=== PATIENT | male | born 1955 | race Caucasian/White ===

== ENCOUNTER 2018-01-11 17:25 | Emergency (ER) | payer OTHER ==
[~2018-01-11] VITALS: Ht 177.8 cm; Wt 101.0 kg
[~2018-01-11 17:25] MED LIST: Z.0.NO CURRENT MEDS
[2018-01-11 17:33] VITALS: BP 152/89; PULSE 86; RESP 16; TEMP 99.2; O2SAT 97
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
[2018-01-11] MEDS ORDERED: IBUPROFEN 800 MG TAB PO ONE (18:30)
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
[2018-01-11] MEDS ORDERED: IBUP1TAB7 PO (19:39)
[2018-01-11] MEDS ORDERED: TETANUS/DIPHTHERIA TOXOID ADULT 0.5 ML VIAL IM ONE (20:15)
== END 2018-01-11 20:13 | disposition home or self-care (01) ==
LOC: PHEFT 17:25
DX: S62.512A Displaced fracture of proximal phalanx of left thumb, initial encounter for closed fracture (principal); V22.4XXA Motorcycle driver injured in collision with two- or three-wheeled motor vehicle in traffic accident, initial encounter; Z23 Encounter for immunization
CPT/HCPCS: 29130; 73140; 90471; 90714; L3808